=== PATIENT | male | born 1960 | race African-American/Black ===

== ENCOUNTER 2019-06-12 20:55 | Emergency (ER) | payer OTHER ==
[~2019-06-12] VITALS: Ht 177.8 cm; Wt 104.3 kg
[~2019-06-12 20:55] MED LIST: ABILIFY 2 MG2 M1 PO; ACETAMINOPHEN325 M1 PO; ANXIETY PILL; ARTHRITIS PILL; ASA81BEC PO; ATROPINE 1%1 %/2 M1 OP; AZITHROMYCIN 2250 MG PO; BACTRIM DS TAB1 EACH PO; BAYER CHEWABLE81 MG PO; CENTRUM SILVER1 EAC2 PO; CEPHALEXIN 500500 M2 PO; CLOTRIMAZOLE-BE15 GM TP; DOXYCYCLINE 10100 MG PO; ECONOPRED PLUS10 M1 OP; EMOLLIENT500 GM TOP; ENOXAPARIN40 MG/0.1 SUBQ; ESCITALOPRAM OX20 MG PO; FLEXERIL PO; GABAPENTIN 100100 MG PO; HYDROCODON-ACE1 EA11 PO; HYDROXYZINE HCL25 M1 PO; IBUPROFEN 800800 MG PO; KEFLEX500 MG; KEFLEX500 MG PO; LOPRESSOR25 PO; NOHOMEMEDICATIONS; NORCO 5-325 TA1 EACH; NORCO 5-325 TA1 EACH PO; NORVASC5 MG PO; SENOKOT-S1 TA2 PO; TEARS NATURALE1 EACH; TRAMADOL 50 MG50 MG PO; TRAZODONE 150150 M1 PO; ULTRAM 50MG TAB50 MG PO; ULTRAM50 MG PO; VICODIN 5-3001 EACH PO; ZANTAC 150MG T150 MG PO
[2019-06-12] MEDS ORDERED: NORCO 5-325 TA1 EAC1 PO (22:20)
[2019-06-12 22:28] LABS: ABSOLUTE NEUTROPHILS 2.9 thou/uL (1.4-8.2); BASOPHILS 0.3 % (0.0-2.0); EOSINOPHILS 2.3 % (0.0-3.0); HEMATOCRIT 35.4 % (42.0-52.0); HEMOGLOBIN 11.9 gm/dL (14.0-18.0); LYMPHOCYTES 45.4 % (24.0-44.0); MCH 31.4 pg (26.0-34.0); MCHC 33.5 g/dL (28.0-37.0); MCV 93.6 fL (80.0-100.0); MONOCYTES 7.7 % (1.0-8.0); PLATELET COUNT 462 thou/uL (150-400); POLYS 44.3 % (36.0-66.0); RBC 3.78 mil/uL (4.50-6.00); RDW 14.2 % (10.5-14.5); WBC 6.6 thou/uL (4.0-11.0)
[2019-06-12 22:35] LABS: CALCIUM 8.5 mg/dL (8.5-10.1); CREATININE 0.9 mg/dL (0.7-1.3); POTASSIUM 3.3 mmol/L (3.5-5.1)
[2019-06-12 22:42] LABS: ALBUMIN 3.1 g/dL (3.4-5.0); TOTAL BILIRUBIN 0.2 mg/dL (<0.1-1.0); TOTAL PROTEIN 7.1 g/dL (6.4-8.2)
[2019-06-12 23:42] VITALS: BP 147/81
--- NOTE | 2019-06-14 08:32 | EKG ---
[address] [address] ELECTROCARDIOGRAM REPORT Name: VIKTOR SANABRIA Room #: DEP Lori#: [id number] Admission: 06/12/19 Attend Phys: Discharge: 06/12/19 Date of : 60 Report #: [id number] THIS REPORT FOR: //name// [facility] ED Test Date: 2019-06-12 Test Time: 22:12:47 Pat Name: VIKTOR SANABRIA Department: Room: Gender: Reconciliation Accountant: [place] : 1960 Requested By: Dario Schmitt Order Number: [id number] MD: Reagan Goldman Measurements Intervals [place] Rate: 90 P: 5 NM: 185 QRS: 7 QRSD: 84 T: 40 QT: 356 QTc: 436 Interpretive Statements Sinus rhythm Compared to ECG 01/25/2014 21:06:57 Sinus tachycardia no longer present Electronically Signed On 06-14-2019 8:32:41 CDT by Reagan Goldman [email or web address] <ELECTRONICALLY SIGNED> By: Reagan Goldman MD 06/14/19 0832 2212 11 Reagan Goldman MD /DANIELLE
== END 2019-06-12 23:43 | disposition home or self-care (01) ==
LOC: ER 20:55
PROVIDERS: Physician Assistant
DX: M17.0 Bilateral primary osteoarthritis of knee (principal); F17.210 Nicotine dependence, cigarettes, uncomplicated; Z88.6 Allergy status to analgesic agent

== ENCOUNTER 2020-12-15 23:03 | Emergency (ER) | payer OTHER ==
[~2020-12-15] VITALS: Ht 175.3 cm; Wt 116.6 kg
[~2020-12-15 23:03] MED LIST changes: +NORCO 5-325 TA1 EAC1 PO
[2020-12-15] MEDS ORDERED: NEURONTIN 300M300 M2 PO (23:27)
[2020-12-15] MEDS ORDERED: DICLOFENAC SOD100 G1 TOP (23:28)
[2020-12-15] MEDS ORDERED: MELOXICAM7.5 MG PO (23:28)
[2020-12-15] MEDS ORDERED: ZOLOFT 50 MG TA50 MG PO (23:28)
[2020-12-15] MEDS ORDERED: VENLAFAXINE HC150 M1 PO (23:29)
[2020-12-15] MEDS ORDERED: OLANZAPINE10 MG PO (23:29)
[2020-12-15] MEDS ORDERED: HYDROXYZINE HCL25 M2 PO (23:29)
[2020-12-15 23:54] LABS: URINE BILIRUBIN NEGATIVE (Negative); URINE BLOOD 1+ (Negative); URINE CLARITY CLEAR; URINE COLOR YELLOW; URINE GLUCOSE-RANDOM* NEGATIVE (Negative); URINE KETONES NEGATIVE (Negative); URINE LEUKOCYTES-REFLEX NEGATIVE (Negative); URINE NITRITE-REFLEX NEGATIVE (Negative); URINE PROTEIN (DIPSTICK) NEGATIVE (Negative); URINE SPECIFIC GRAVITY <= 1.005 (1.005-1.035); URINE UROBILINOGEN 0.2 E.U./dl (0.2-1.0)
[2020-12-16 00:05] LABS: ABSOLUTE NEUTROPHILS 3.8 thou/uL (1.4-8.2); BASOPHILS 0.8 % (0.0-2.0); EOSINOPHILS 2.8 % (0.0-3.0); HEMATOCRIT 36.6 % (42.0-52.0); HEMOGLOBIN 12.5 gm/dL (14.0-18.0); LYMPHOCYTES 35.3 % (24.0-44.0); MCH 31.5 pg (26.0-34.0); MCHC 34.2 g/dL (28.0-37.0); MONOCYTES 9.3 % (1.0-8.0); PLATELET COUNT 246 thou/uL (150-400); POLYS 51.8 % (36.0-66.0); RBC 3.98 mil/uL (4.50-6.00); RDW 15.9 % (10.5-14.5); WBC 7.3 thou/uL (4.0-11.0)
[2020-12-16 00:11] LABS: ANION GAP 13 mmol/L (7-16); BUN 12 mg/dL (7-18); CALCIUM 8.5 mg/dL (8.5-10.1); CHLORIDE 102 mmol/L (98-107); CO2 24 mmol/L (21-32); GLUCOSE 119 mg/dL (74-106); POTASSIUM 3.9 mmol/L (3.5-5.1); SODIUM 139 mmol/L (136-145)
[2020-12-16 00:21] LABS: ALBUMIN 3.4 g/dL (3.4-5.0); SGOT 15 U/L (15-37); SGPT 22 U/L (16-63); TOTAL BILIRUBIN 0.1 mg/dL (0.2-1.0); TOTAL PROTEIN 7.3 g/dL (6.4-8.2); TROPONIN-I <0.06 ng/mL (<0.06)
[2020-12-16 01:02] LABS: BACTERIA-REFLEX None Seen /HPF (None Seen); CASTS None Seen /LPF (None Seen); CRYSTALS None Seen /LPF (None Seen); MUCUS 0-3 Light strn/LPF (None Seen); SQUAMOUS 0-3 Few /LPF (0-3); URINE RBC 1-2 Rare /HPF (NONE SEEN); URINE WBC-REFLEX None Seen /HPF (0-5)
[2020-12-16 03:38] VITALS: BP 142/68
--- NOTE | 2020-12-17 07:05 | EKG ---
[address] [place] [address] ELECTROCARDIOGRAM REPORT Name: VIKTOR SANABRIA Room #: DEP Lori#: [id number] Admission: 12/15/20 Attend Phys: Discharge: 12/16/20 Date of : 60 Report #: [id number] [facility] ED Test Date: 2020-12-15 Test Time: 23:37:17 Pat Name: VIKTOR SANABRIA Department: Room: Gender: M Video Game Tester: : 1960 Requested By: Pat Scott Order Number: [id number] MD: Will Saha Measurements Intervals [place] Rate: 86 P: -23 AK: 184 QRS: 0 QRSD: 84 T: 23 QT: 356 QTc: 426 Interpretive Statements Sinus rhythm Compared to ECG 06/12/2019 22:12:47 No significant changes Electronically Signed On 12-17-2020 7:05:48 CDT by Will Saha [email or web address] <ELECTRONICALLY SIGNED> By: Will Saha MD, [facility] 12/17/20 0705 [id number] Will Saha MD, [facility] /EPI
== END 2020-12-16 04:28 | disposition home or self-care (01) ==
LOC: ER 23:03
PROVIDERS: Emergency Medicine
DX: F10.129 Alcohol abuse with intoxication, unspecified (principal); M25.561 Pain in right knee; M25.562 Pain in left knee; M19.90 Unspecified osteoarthritis, unspecified site; F17.210 Nicotine dependence, cigarettes, uncomplicated; Z88.6 Allergy status to analgesic agent

== ENCOUNTER 2020-12-16 05:35 | Emergency (ER) | payer OTHER ==
[~2020-12-16] VITALS: Ht 177.8 cm; Wt 108.9 kg
[~2020-12-16 05:35] MED LIST changes: +DICLOFENAC SOD100 G1 TOP; +HYDROXYZINE HCL25 M2 PO; +MELOXICAM7.5 MG PO; +NEURONTIN 300M300 M2 PO; +OLANZAPINE10 MG PO; +VENLAFAXINE HC150 M1 PO; +ZOLOFT 50 MG TA50 MG PO
[2020-12-16 05:37] VITALS: BP 136/92
[2020-12-16 06:20] LABS: AMP/METHAMP Negative (Negative); BARBITURATES Negative (Negative); BENZODIAZEPINES Negative (Negative); COCAINE POSITIVE (Negative); METHADONE POSITIVE (Negative); OPIATES Negative (Negative); PCP Negative (Negative)
[2020-12-16 06:26] LABS: SALICYLATE 6.5 mg/dL (2.8-20.0)
== END 2020-12-16 06:58 | disposition home or self-care (01) ==
LOC: ER 05:35
PROVIDERS: Emergency Medicine
DX: F32.9 Major depressive disorder, single episode, unspecified (principal); M19.90 Unspecified osteoarthritis, unspecified site; F17.210 Nicotine dependence, cigarettes, uncomplicated; Z59.0 Homelessness; Z88.6 Allergy status to analgesic agent

== ENCOUNTER 2020-12-17 16:56 | Emergency (ER) | payer OTHER ==
[~2020-12-17] VITALS: Ht 177.8 cm; Wt 108.9 kg
[2020-12-17 17:02] VITALS: BP 148/85
== END 2020-12-17 17:52 | disposition home or self-care (01) ==
LOC: ER 16:56
DX: M79.10 Myalgia, unspecified site (principal); M25.562 Pain in left knee; M25.561 Pain in right knee; F17.210 Nicotine dependence, cigarettes, uncomplicated; Z59.0 Homelessness; Z79.899 Other long term (current) drug therapy; Z88.8 Allergy status to other drugs, medicaments and biological substances

== ENCOUNTER 2020-12-19 07:15 | Emergency (ER) | payer OTHER ==
[~2020-12-19] VITALS: Ht 177.8 cm; Wt 108.9 kg
[2020-12-19 07:25] VITALS: BP 146/87
== END 2020-12-19 07:48 | disposition home or self-care (01) ==
LOC: ER 07:15
DX: M79.605 Pain in left leg (principal); M79.604 Pain in right leg; F17.210 Nicotine dependence, cigarettes, uncomplicated; Z59.0 Homelessness; Z79.899 Other long term (current) drug therapy; Z88.8 Allergy status to other drugs, medicaments and biological substances

== ENCOUNTER 2021-06-04 01:17 | Emergency (ER) | payer OTHER ==
[~2021-06-04] VITALS: Ht 177.8 cm; Wt 107.5 kg
[2021-06-04] MEDS ORDERED: TYLENOL325 MG PO (01:57)
[2021-06-04 02:25] VITALS: BP 158/86
== END 2021-06-04 02:28 | disposition home or self-care (01) ==
LOC: ER 01:17
DX: M19.90 Unspecified osteoarthritis, unspecified site (principal); F32.9 Major depressive disorder, single episode, unspecified; F17.210 Nicotine dependence, cigarettes, uncomplicated; Z79.899 Other long term (current) drug therapy; Z88.6 Allergy status to analgesic agent

== ENCOUNTER 2021-06-28 22:55 | Emergency (ER) | payer OTHER ==
[~2021-06-28] VITALS: Ht 177.8 cm; Wt 108.9 kg
--- NOTE | ~2021-06-28 | EMS ---
[facility] [address] [place] [address] EMS Patient Care Report Name: VIKTOR SANABRIA Room #: DEP Lori#: [id number] Admission: 06/28/21 Attend Phys: Discharge: 06/28/21 Date of : 60 Report #: [id number] THIS REPORT FOR: //name// Report Transmitted: 07/01/2021 11:58 EMS Care Summary [place], [place]/[facility] Incident [id number] @ 06/28/2021 22:24 Incident Location [address] [place] [address] / [place] [address] Patient VIKTOR SANABRIA Male, 60 Years 1960 Patient Address [address] [place] [id number] Patient History Behavioral/Psychiatric Disorder,Hypertension (HTN),Hyperlipidemia,Gastro-Esophageal Reflux Disease (GERD),Arthritis,Depression,Osteoarthritis,Alcohol Abuse, Patient Allergies Ibuprofen,Naproxen, Patient Medications Metoprolol, Tamsulosin, Effexor, Atorvastatin, Famotidine, Celebrex, Trazodone, Amlodipine, Zyprexa, Gabapentin, Finasteride, Chief Complaint arthritis Disposition Transported No Lights/[place] Dispatch Reason Sick Person Transported To [facility] [address] [place] [address] EMS Patient Care Report Name: VIKTOR SANABRIA Room #: DEP ER Lori#: [id number] Admission: 06/28/21 Attend Phys: Discharge: 06/28/21 Date of : 60 Report #: [id number] [address] stop. O/A M29 found male who reported he had pain from arthritis. Pt walked to [facility] and moved to [facility]. Pt transported to [facility]. [facility] in service. Initial Vitals @22:46P: 79,BP: 166/96,SpO2: 61, @22:36P: 86,R: 16,BP: 160/105,Pain: 0/10,GCS: 15,Glucose: 88,SpO2: 94,Revised Trauma: 12, Assessments @22:40MENTAL:No Abnormalities,SKIN:No Abnormalities,HEENT:Head/Face: No Abnormalities,Eyes: No Abnormalities,Neck/Airway: No Abnormalities,LUNG SOUNDS:General: No Abnormalities,Left Upper: No Abnormalities,Right Upper: No Abnormalities,Left Lower: No Abnormalities,Right Lower: No Abnormalities,ABDOMEN:General: No Abnormalities,Left Upper: No Abnormalities,Right Upper: No Abnormalities,Left Lower: No Abnormalities,Right Lower: No Abnormalities,PELVIS//GI:No Abnormalities,EXTREMITIES:Left Arm: No Abnormalities,Right Arm: No Abnormalities,Left Leg: No Abnormalities,Right Leg: No Abnormalities,PULSE:NEURO:No Abnormalities,@22:47MENTAL:No Abnormalities,SKIN:No Abnormalities,HEENT:Head/Face: No Abnormalities,Eyes: No Abnormalities,Neck/Airway: No Abnormalities,LUNG SOUNDS:General: No Abnormalities,Left Upper: No Abnormalities,Right Upper: No Abnormalities,Left Lower: No Abnormalities,Right Lower: No Abnormalities,ABDOMEN:General: No Abnormalities,Left Upper: No Abnormalities,Right Upper: No Abnormalities,Left Lower: No Abnormalities,Right Lower: No Abnormalities,PELVIS//GI:No Abnormalities,EXTREMITIES:Left Arm: No Abnormalities,Right Arm: No Abnormalities,Left Leg: No Abnormalities,Right Leg: No Abnormalities,PULSE:NEURO:No Abnormalities, Impression Generalized Weakness Timeline 22:22,Call Received 22:22,Dispatch Notified 22:24,Dispatched 22:25,En Route 22:28,On Scene 22:29,At Patient 22:36,BP: 160/105 M,PULSE: 86,RR: 16 R,SPO2: 94 Ox,ETCO2: ,B,PAIN: 0,GCS: 15, 22:39,Depart Scene 22:46,BP: 166/96 M,PULSE: 79,RR: R,SPO2: 61 Ox,ETCO2: ,BG: ,PAIN: ,GCS: , 22:50,At Destination 23:05,Call Closed [address] [address] EMS Patient Care Report Name: VIKTOR SANABRIA Room #: DEP Lori#: [id number] Admission: 06/28/21 Attend Phys: Discharge: 06/28/21 Date of : 60 Report #: [id number] Disclaimer [email or web address] Copyright 2020 [employer] This EMS Care Summary contains data elements from the applicable legal record (which may be displayed differently). It is designed to provide pertinent information for the following purposes: continuity of care, clinical quality, and state data reporting. The complete legal record is available to ED staff and administrators of the receiving hospital in [facility]'s Patient Tracker. All data is provided "as is."
[~2021-06-28 22:55] MED LIST changes: +TYLENOL325 MG PO
[2021-06-28 23:01] VITALS: BP 134/75
== END 2021-06-28 23:29 | disposition home or self-care (01) ==
LOC: ER 22:55
DX: M19.90 Unspecified osteoarthritis, unspecified site (principal); Z98.890 Other specified postprocedural states; F32.9 Major depressive disorder, single episode, unspecified; F17.210 Nicotine dependence, cigarettes, uncomplicated; Z79.1 Long term (current) use of non-steroidal anti-inflammatories (NSAID); Z79.891 Long term (current) use of opiate analgesic; Z79.899 Other long term (current) drug therapy; Z88.8 Allergy status to other drugs, medicaments and biological substances; Z88.6 Allergy status to analgesic agent